=== PATIENT | female | born 1955 | race Caucasian/White ===

== ENCOUNTER → 2017-03-23 | Outpatient (CLI) | payer OTHER ==
[~2017-03-23] VITALS: Ht 157.5 cm; Wt 69.9 kg
[~2017-03-23] MED LIST: CYANOCOBALAM1000 MCG PO; DAILY VALUE1 EACH PO; EFFEXOR XR75 MG PO; KLONOPIN0.5 M1 PO; LO-DOSE ASPIRIN81 M2 PO; NORCO 5/3251 TABLET PO; ZANAFLEX4 M1 PO
== END | disposition home or self-care (01) ==
LOC: AMB 06:56
DX: K29.50 Unspecified chronic gastritis without bleeding (principal); R10.11 Right upper quadrant pain; Z90.49 Acquired absence of other specified parts of digestive tract; F41.9 Anxiety disorder, unspecified; I34.0 Nonrheumatic mitral (valve) insufficiency; Z80.0 Family history of malignant neoplasm of digestive organs; Z80.3 Family history of malignant neoplasm of breast; Z79.82 Long term (current) use of aspirin
CPT/HCPCS: 88305; 88342 TC; J2250; J3010